=== PATIENT | female | born 1965 | race Two or more races ===

== ENCOUNTER 2020-08-30 09:00 | Outpatient (CLI) | payer OTHER | END 2020-08-30 09:08 | disposition home or self-care (01) | LOC: SONOGRAMA 09:00 | PROVIDERS: ATTEND Urology | DX: R31.1 Benign essential microscopic hematuria (principal) ==

== ENCOUNTER 2022-04-05 03:10 | Emergency (ER) | payer OTHER ==
[~2022-04-05] VITALS: Ht 177.8 cm; Wt 113.4 kg
[2022-04-05] MEDS ORDERED: KETO10TA2 PO (06:03)
[2022-04-05] MEDS ORDERED: CIPRO500 MG PO (06:03)
[2022-04-05] MEDS ORDERED: TAMS0.4C PO (06:03)
== END 2022-04-05 06:20 | disposition home or self-care (01) ==
LOC: ER 03:10
DX: N20.9 Urinary calculus, unspecified (principal); N20.1 Calculus of ureter; I10 Essential (primary) hypertension; K57.30 Diverticulosis of large intestine without perforation or abscess without bleeding; K76.89 Other specified diseases of liver

== ENCOUNTER → 2023-03-09 | Outpatient (CLI) | payer OTHER ==
[~2023-03-09] MED LIST: CIPRO500 MG PO; KETO10TA2 PO; TAMS0.4C PO
== END | disposition home or self-care (01) ==
LOC: MRI 13:19
PROVIDERS: ATTEND Orthopaedic Surgery Sports Medicine
DX: M25.562 Pain in left knee (principal)
CPT/HCPCS: 73721